=== PATIENT | female | born 1955 | race Caucasian/White ===

== ENCOUNTER 2018-01-07 09:26 | Day surgery (SDC) | payer BC ==
[~2018-01-07 09:26] MED LIST: LIDOCAINE HCL 1% MPF SOL ONE; PROPOFOL 500 MG/50 ML EMU IV ONE
[2018-01-07 11:23] VITALS: BP 157/85; PULSE 63; RESP 18; TEMP 97.6; O2SAT 100
== END 2018-01-07 11:40 | disposition home or self-care (01) ==
LOC: SURG 09:26
PROVIDERS: ATTEND Surgery
DX: Z12.11 Encounter for screening for malignant neoplasm of colon (principal); Z86.010 Personal history of colon polyps; D12.2 Benign neoplasm of ascending colon; D12.5 Benign neoplasm of sigmoid colon; D12.8 Benign neoplasm of rectum; K63.5 Polyp of colon
CPT/HCPCS: 99001; J2001; J2704